=== PATIENT | female | born 1940 | race Caucasian/White ===

== ENCOUNTER → 2017-05-27 | Outpatient (CLI) | payer OTHER ==
[~2017-05-27] MED LIST: LACTULOSE; TRAMADOL HCL50 M1; Z.0.ATENOLOL25 MG; Z.0.LEVOXYL125 MCG; Z.0.PROZAC20 MG; Z.0.SIMVASTATIN20 MG; Z.1.HYDROCHLOROTH12.
== END ==
LOC: RESP 09:37
PROVIDERS: ATTEND Internal Medicine
DX: R05 Cough (principal); K21.9 Gastro-esophageal reflux disease without esophagitis; I10 Essential (primary) hypertension
CPT/HCPCS: 94060; 94727; 94729

== ENCOUNTER 2017-10-23 11:12 | Observation (INO) | payer OTHER ==
[~2017-10-23] VITALS: Ht 162.6 cm; Wt 70.5 kg
--- NOTE | 2017-10-23 12:01 | Diagnostic Imaging Report ---
Examination: Single AP view of the chest. COMPARISON: 06/30/2011. INDICATION: Chest pain. DISCUSSION: Lines/tubes: None. Lungs: Mild patchy density in the right lung base suggestive of subsegmental atelectasis.. There is no evidence of pneumonia or pulmonary edema. Pleura: There is no pleural effusion or pneumothorax. Heart and mediastinum: Cardiomediastinal silhouette is unremarkable. Pulmonary vasculature is normal. Bones and soft tissues: No acute bony abnormalities. Degenerative changes in the thoracic spine. IMPRESSION: 1. Right basilar subsegmental atelectasis. Signed by: Dr. Jason Barrera M.D. on 10/23/2017 11:58 AM
[2017-10-23 12:46] LABS: CLARITY,URINE CLEAR (CLEAR); COLOR,URINE YELLOW (YELLOW); LEUKOCYTE ESTERASE ,URINE NEGATIVE (NEGATIVE); NITRITE,URINE NEGATIVE (NEGATIVE); PROTEIN,URINE DIPSTICK NEGATIVE (NEGATIVE)
[2017-10-23 12:47] LABS: BILIRUBIN,URINE NEGATIVE (NEGATIVE); KETONES,URINE NEGATIVE (NEGATIVE); URINE UROBILINOGEN 0.2 mg/dL (0.2 - 1)
[2017-10-23 12:50] LABS: BACTERIA,URINE FEW /HPF; EPITHELIAL CELLS,URINE FEW /LPF; RBC,URINE 0-5 /HPF (0-5); WBC,URINE (MAN) 0-5 /HPF (0-5)
[2017-10-23 13:00] LABS: BASOPHILS # (AUTO) 0.1 (0.0-0.1); BASOPHILS % 0.6 % (0.0-1.0); EOSINOPHILS # (AUTO) 0.1 (0.0-0.4); EOSINOPHILS % 0.9 % (0.0-6.0); HEMATOCRIT 45.6 % (34.2-44.1); HEMOGLOBIN 15.8 g/dL (12.0-16.0); LYMPHOCYTES # (AUTO) 2.7 (1.0-3.2); LYMPHOCYTES % 19.2 % (18.0-39.1); MEAN CORPUSCULAR HEMOGLOBIN 31.5 pg (28-32); MEAN CORPUSCULAR HGB CONC 34.6 g/dL (31-35); MEAN CORPUSCULAR VOLUME 90.8 fL (81-99); MONOCYTES # (AUTO) 1.1 (0.2-0.8); MONOCYTES % 7.6 % (4.4-11.3); NEUTROPHILS % 70.6 % (38.7-80.0); PLATELET COUNT 223 x10e3/uL (140-360); RED BLOOD COUNT 5.02 x10e6/uL (3.6-5.1); RED CELL DISTRIBUTION WIDTH 12.7 % (11.7-14.4)
[2017-10-23 13:09] LABS: INR 1.05; PROTHROMBIN TIME 12.9 seconds (11.9-14.5)
[2017-10-23 13:10] LABS: PARTIAL THROMBOPLASTIN TIME 25.6 seconds (23.8-35.5)
[2017-10-23 13:23] LABS: ALANINE AMINOTRANSFERASE 16 IU/L (0-55); ALBUMIN 3.9 g/dL (3.5-5.0); ALKALINE PHOSPHATASE 86 IU/L (40-150); ANION GAP 18.4 mmol/L (8-16); BLOOD UREA NITROGEN 20 mg/dL (7-26); BUN/CREATININE RATIO 24 (6-25); CALCIUM 10.4 mg/dL (8.4-10.2); CARBON DIOXIDE 25 mmol/L (22-29); CHLORIDE 99 mmol/L (98-107); CREATINE KINASE 33 IU/L (29-168); CREATININE, SERUM 0.84 mg/dL (0.57-1.11); EST GLOMERULAR FILTRATION RATE > 60 ML/MIN (60-); GLUCOSE 104 mg/dL (74-118); POTASSIUM 3.4 mmol/L (3.5-5.1); SODIUM 139 mmol/L (136-145)
[2017-10-23] MEDS: SODIUM CHLORIDE 0.9% 1000ML 1,000 ML IV SCH ×2 (14:06→21:57)
[2017-10-23] MEDS ORDERED: AZITHROMYCIN 500MG/NS 250 ML 250 ML IV ONE (14:15)
[2017-10-23] MEDS ORDERED: AZITHROMYCIN 500MG/SOD CHL 0.9% 250ML BAG IV SCH (14:15)
[2017-10-23] MEDS ORDERED: METHYLPREDNISOLONE SOD SUCC 125 MG/2ML VIAL IV ONE (14:30)
[2017-10-23] MEDS: CEFTRIAXONE SOD 1 GM VIAL IV SCH (14:41)
[2017-10-23] MEDS ORDERED: AZITHROMYCIN 500MG/NS 250 ML 250 ML IV SCH (15:00)
[2017-10-23 16:00] VITALS: BP 138/60
[2017-10-23 16:43] VITALS: BP 138/60
[2017-10-23] MEDS ORDERED: BACLOFEN10 MG PO (16:53)
[2017-10-23] MEDS ORDERED: NORCO 10-325 T1 EACH (16:53)
[2017-10-23] MEDS ORDERED: ALPRAZOLAM0.5 MG PO (16:53)
[2017-10-23] MEDS ORDERED: SERTRALINE HCL50 MG PO (16:53)
[2017-10-23] MEDS ORDERED: LEVOTHYROXINE150 MCG (16:53)
[2017-10-23] MEDS: ALBUTEROL SULF 0.083% NEB SOLN 3 ML NEB NEB SCH ×2 (19:00→23:00)
[2017-10-23] MEDS: IPRATROPIUM BROMIDE 0.02% 2.5 ML NEB NEB SCH ×2 (19:00→23:00)
[2017-10-23 19:20] VITALS: BP 108/66
[2017-10-23] MEDS: METHYLPREDNISOLONE SOD SUCC 40 MG/ML VIAL IV SCH (21:56)
[2017-10-23 22:27] VITALS: BP 108/66
[2017-10-24] VITALS (7 sets, daily range): BP systolic 104–138; BP diastolic 57–72
[2017-10-24] MEDS: ALBUTEROL SULF 0.083% NEB SOLN 3 ML NEB NEB SCH ×6 (03:08→23:36)
[2017-10-24 05:48] LABS: BASOPHILS % 0.2 % (0.0-1.0); EOSINOPHILS % 0.2 % (0.0-6.0); HEMOGLOBIN 14.5 g/dL (12.0-16.0); LYMPHOCYTES % 9.1 % (18.0-39.1); MEAN CORPUSCULAR HEMOGLOBIN 31.2 pg (28-32); MONOCYTES # (AUTO) 0.1 (0.2-0.8); NEUTROPHILS # (AUTO) 9.3 (2.1-6.9); NEUTROPHILS % 88.1 % (38.7-80.0); PLATELET COUNT 164 x10e3/uL (140-360); RED BLOOD COUNT 4.65 x10e6/uL (3.6-5.1); RED CELL DISTRIBUTION WIDTH 12.7 % (11.7-14.4)
[2017-10-24 05:52] LABS: MEAN CORPUSCULAR VOLUME 94.6 fL (81-99)
[2017-10-24] MEDS: METHYLPREDNISOLONE SOD SUCC 40 MG/ML VIAL IV SCH ×3 (06:04→21:18)
[2017-10-24] MEDS: SODIUM CHLORIDE 0.9% 1000ML 1,000 ML IV SCH (06:06)
[2017-10-24 06:18] LABS: ANION GAP 20.5 mmol/L (8-16); CALCIUM 9.6 mg/dL (8.4-10.2); CREATININE, SERUM 0.94 mg/dL (0.57-1.11); POTASSIUM 3.5 mmol/L (3.5-5.1)
--- NOTE | 2017-10-24 06:55 | Diagnostic Imaging Report ---
EXAM: CHEST SINGLE (PORTABLE), AP 1 view INDICATION: Pneumonia COMPARISON: AP view the chest October 23, 2017 FINDINGS: LINES/TUBES: None LUNGS: No consolidations or edema. PLEURA: No effusions or pneumothorax. HEART AND MEDIASTINUM: Normal size and contour. BONES AND SOFT TISSUES: No acute findings. IMPRESSION: No acute thoracic abnormality. Signed by: Dr. Anjali Young M.D. on 10/24/2017 6:52 AM
[2017-10-24] MEDS: IPRATROPIUM BROMIDE 0.02% 2.5 ML NEB NEB SCH ×4 (07:07→23:36)
[2017-10-24] MEDS ORDERED: HYDROCODONE/APAP 10MG-325MG TAB PO PRN (09:45)
[2017-10-24] MEDS ORDERED: ALPRAZOLAM 0.5 MG TAB PO PRN (09:45)
[2017-10-24] MEDS ORDERED: BENZONATATE 100 MG CAP PO PRN (09:45)
[2017-10-24] MEDS ORDERED: BACLOFEN 10 MG TAB PO PRN (09:45)
[2017-10-24] MEDS: AZITHROMYCIN 250 MG TAB PO SCH (10:30)
--- NOTE | 2017-10-24 10:45 | History and Physical ---
Patient placed on observation. CHIEF COMPLAINT: Asthma exacerbation. HISTORY: A 77-year-old female basically came in with acute asthma exacerbation. The patient was having increasing shortness of breath. At baseline the patient has controlled asthma. She had multiple hospitalizations in the past with acute bronchitis. Chest x-ray showed atelectasis but otherwise no infiltrate. The patient is stable now. She does have some expiratory wheezing but no fever. PAST MEDICAL HISTORY: Asthma, hypertension, recent right shoulder surgery, hypothyroidism, depression, anxiety disorder. Chronic pain with osteoarthritis. Osteopenia/osteoporosis. ALLERGIES: TO PENICILLIN AND NAPROXEN. HOME MEDICATIONS: Xanax, Baclofen, [place], levothyroxine and Zoloft. PHYSICAL EXAMINATION: VITAL SIGNS: Temperature is 98. Blood pressure 138/65. Pulse rate is 88. Respiration 22. GENERAL: The patient is not in acute distress. She is awake. HEENT: Normocephalic, atraumatic. She is anicteric. NECK: Supple grossly. PULMONARY: Diminished breath sounds bilaterally with expiratory wheezes and a few rhonchi, a few coarses. CARDIOVASCULAR: S1 and S2. Regular rate and rhythm. ABDOMEN: Soft and unremarkable. EXTREMITIES: No cyanosis or edema. NEUROLOGIC: No gross focal deficit. LABORATORY: Sodium is 139, potassium 3.5, chloride 100, bicarb 22, BUN 28, creatinine 0.9. Glucose 209. WBC is 10.4, hemoglobin 14.5, hematocrit 44, platelets are 164. CHEST X-RAY: Basilar atelectasis. IMPRESSION: 1. Acute asthma exacerbation. 2. Chronic cough. 3. Abnormal lung exam as mentioned above. PLAN: IV steroids. Nebulizer treatment. Antitussive medication. Resume home medication. Treat allergic rhinitis, may be the cause of the exacerbation of her asthma. Patient on observation. Job#: [id number] EV
[2017-10-24] MEDS: LORATADINE 10 MG TAB PO SCH (11:00)
[2017-10-24] MEDS: FAMOTIDINE 20 MG TAB PO SCH ×2 (11:00→16:26)
[2017-10-24] MEDS: LEVOTHYROXINE SODIUM 100 MCG TAB PO SCH (11:00)
[2017-10-24] MEDS: SENNA-S TABLET PO SCH ×2 (11:00→16:26)
[2017-10-24] MEDS: BENZONATATE 100 MG CAP PO SCH ×3 (11:00→21:18)
[2017-10-24] MEDS: CEFTRIAXONE SOD 1 GM VIAL IV SCH (13:00)
--- NOTE | 2017-10-24 15:47 | Consultation ---
DATE OF CONSULTATION: PULMONARY CONSULTATION REASON FOR CONSULTATION: Shortness of breath. HISTORY OF PRESENT ILLNESS: Ms. Scott is a 77-year-old female well known to me from previous admissions and my office visits. She has history of asthma and reactive airways that started after an episode of pneumonia last year. She has been doing well with a low-dose steroid inhaler, but yesterday she started having increasing cough and wheezing; so, she decided to come to the emergency room. She recently had a shoulder surgery. She denies any complaints of chest pain, nausea, vomiting or diarrhea. REVIEW OF SYSTEMS: GENERAL: Denies any fever or chills. HEAD: Denies any head trauma. ENT: Denies any earache. CVS: Denies any chest pain. RESPIRATORY: Shortness of breath. GI: Denies any nausea or vomiting. REST OF THE REVIEW OF SYSTEMS: Negative except as in history of present illness. PAST MEDICAL HISTORY: Asthma, hypertension, recent shoulder surgery, hypothyroidism, depression, anxiety, chronic pain with osteoarthritis. FAMILY AND SOCIAL HISTORY: She lives with her . She does not smoke, does not drink. PHYSICAL EXAMINATION: VITALS: Temperature 96.7, pulse of 98, blood pressure 138/65, respiratory rate of 18. HEENT: Atraumatic, normocephalic. NECK: Supple. No JVD. CHEST: Clear to auscultation bilaterally. No wheezing. HEART: S1 and S2 audible. ABDOMEN: Soft, nontender, nondistended. Bowel sounds audible. EXTREMITIES: No clubbing, cyanosis or edema. NEUROLOGIC: Awake, alert. No focal neurologic deficit. LABORATORY DATA: White count of 10,000. Hemoglobin 14.5. Platelets 164. CHEMISTRY: Sodium 139, potassium 3.5, chloride 100, BUN 28, creatinine 0.9. CHEST X-RAY: I have reviewed the images, not showing any focal infiltrate. ASSESSMENT AND PLAN: Ms. Scott is a 77-year-old female who presented with asthma exacerbation, previous history of reactive airways and asthma. Chest x-ray is within normal limits. PLAN: 1. Nebulizer treatment has been ordered. 2. IV steroids. 3. Will continue the patient's Singulair. 4. Oxygen as needed. Thank you for this consult. Job#: [id number] EV
[2017-10-24] MEDS ORDERED: MONTELUKAST SODIUM 10 MG TAB PO SCH (21:00)
[2017-10-25 00:15] VITALS: BP 128/59
[2017-10-25 01:00] VITALS: BP 128/59
[2017-10-25] MEDS: ALBUTEROL SULF 0.083% NEB SOLN 3 ML NEB NEB SCH ×2 (03:00→07:15)
[2017-10-25 05:00] VITALS: BP 104/54
[2017-10-25] MEDS: METHYLPREDNISOLONE SOD SUCC 40 MG/ML VIAL IV SCH (05:53)
[2017-10-25] MEDS: LEVOTHYROXINE SODIUM 100 MCG TAB PO SCH (05:53)
[2017-10-25] MEDS: IPRATROPIUM BROMIDE 0.02% 2.5 ML NEB NEB SCH (07:15)
[2017-10-25 07:59] VITALS: BP 114/56
[2017-10-25 08:00] VITALS: BP 114/56
[2017-10-25] MEDS: SENNA-S TABLET PO SCH (08:58)
[2017-10-25] MEDS: FAMOTIDINE 20 MG TAB PO SCH (08:58)
[2017-10-25] MEDS: LORATADINE 10 MG TAB PO SCH (08:58)
[2017-10-25] MEDS: BENZONATATE 100 MG CAP PO SCH (08:58)
[2017-10-25] MEDS ORDERED: SERTRALINE HCL 50 MG TAB PO SCH (09:00)
[2017-10-25] MEDS ORDERED: SINGULAIR10 MG PO (09:51)
[2017-10-25] MEDS ORDERED: CLARITIN10 MG PO (09:52)
[2017-10-25] MEDS ORDERED: TESSALON PERLE100 MG PO (09:54)
[2017-10-25] MEDS ORDERED: AZITHROMYCIN250 MG PO (09:54)
[2017-10-25] MEDS ORDERED: medrol pack (09:55)
[2017-10-25] MEDS: AZITHROMYCIN 250 MG TAB PO SCH (09:57)
--- NOTE | 2017-10-25 15:53 | Discharge Summary ---
FINAL DIAGNOSES: 1. Acute exacerbation of asthma. 2. Shortness of breath, resolved. SUMMARY: A 77-year-old female came in with some increasing shortness of breath and wheezing. Patient had a lot of stress at home. She was crying due to multiple family members sick and ill with multiple planned surgeries in the future. The patient is very anxious. She also had recent right shoulder surgery and, therefore, she is limited to what she can do at home and also having some stress. Discussed with the patient at length. Her asthma exacerbation now resolved. She will go home with Medrol Dosepak, Miguel and Markie and Emeterio Nguyen for cough, azithromycin 250 mg daily for 5 days. Patient is stable. She will follow up next week for any adjustment of her medication. The patient is stable, comfortable and going home today. Job#: [id number]
== END 2017-10-25 10:36 | disposition home or self-care (01) ==
LOC: ER 11:12 → ERHOLD 14:06 → IMCU 16:00
PROVIDERS: ADMIT Internal Medicine; ATTEND Internal Medicine
DX: J44.1 Chronic obstructive pulmonary disease with (acute) exacerbation (principal); J45.41 Moderate persistent asthma with (acute) exacerbation; E03.9 Hypothyroidism, unspecified; F41.9 Anxiety disorder, unspecified; G89.29 Other chronic pain; M19.90 Unspecified osteoarthritis, unspecified site; Z88.0 Allergy status to penicillin; Z88.8 Allergy status to other drugs, medicaments and biological substances; R05 Cough
CPT/HCPCS: 36415 ×2; 71045 ×2; 80048; 80053; 81001; 82550; 82553; 83880; 84484; 85025 ×2; 85610; 85730; 87040; 87070; 87205; 93005; 94640 ×5; 99284; G0378 ×3; J0696 ×2; J2920 ×3; J2930; J7030; J0456

== ENCOUNTER 2018-06-05 12:15 | Emergency (ER) | payer MEDICARE, OTHER ==
[~2018-06-05] VITALS: Ht 162.6 cm; Wt 70.3 kg
[~2018-06-05 12:15] MED LIST changes: +ALPRAZOLAM0.5 MG PO; +AZITHROMYCIN250 MG PO; +BACLOFEN10 MG PO; +CLARITIN10 MG PO; +LEVOTHYROXINE150 MCG; +NORCO 10-325 T1 EACH; +SERTRALINE HCL50 MG PO; +SINGULAIR10 MG PO; +TESSALON PERLE100 MG PO; +medrol pack
[2018-06-05] MEDS ORDERED: ONDANSETRON HCL 4 MG ORAL DISINTEGRATING TAB PO ONE (12:30)
[2018-06-05 13:25] LABS: BASOPHILS # (AUTO) 0.1 (0.0-0.1); BASOPHILS % 1.1 % (0.0-1.0); EOSINOPHILS # (AUTO) 0.3 (0.0-0.4); EOSINOPHILS % 2.9 % (0.0-6.0); HEMATOCRIT 44.9 % (34.2-44.1); HEMOGLOBIN 15.6 g/dL (12.0-16.0); LYMPHOCYTES # (AUTO) 2.4 (1.0-3.2); LYMPHOCYTES % 26.7 % (18.0-39.1); MEAN CORPUSCULAR HGB CONC 34.7 g/dL (31-35); MONOCYTES # (AUTO) 0.7 (0.2-0.8); MONOCYTES % 8.2 % (4.4-11.3); NEUTROPHILS # (AUTO) 5.3 (2.1-6.9); NEUTROPHILS % 59.1 % (38.7-80.0); PLATELET COUNT 268 x10e3/uL (140-360); RED BLOOD COUNT 4.88 x10e6/uL (3.6-5.1)
--- NOTE | 2018-06-05 13:40 | NUR ---
TO CT BY STRETCHER WITH WORLD TRAVEL COUNSELOR; HISTORY ENDORSED.
[2018-06-05 13:47] LABS: INR 0.85; PROTHROMBIN TIME 12.4 seconds (11.9-14.5)
[2018-06-05 13:48] LABS: PARTIAL THROMBOPLASTIN TIME 34.9 seconds (23.8-35.5)
[2018-06-05 13:57] LABS: ALANINE AMINOTRANSFERASE 13 IU/L (0-55); ALBUMIN 3.7 g/dL (3.5-5.0); ALKALINE PHOSPHATASE 80 IU/L (40-150); BLOOD UREA NITROGEN 11 mg/dL (7-26); BUN/CREATININE RATIO 13 (6-25); CALCIUM 9.7 mg/dL (8.4-10.2); CARBON DIOXIDE 23 mmol/L (22-29); CHLORIDE 101 mmol/L (98-107); CREATINE KINASE 40 IU/L (29-168); CREATININE, SERUM 0.88 mg/dL (0.57-1.11); EST GLOMERULAR FILTRATION RATE > 60 ML/MIN (60-); GLUCOSE 191 mg/dL (74-118); LIPASE 12 U/L (8-78); MAGNESIUM 1.9 MG/DL (1.3-2.1); SODIUM 141 mmol/L (136-145)
--- NOTE | 2018-06-05 14:00 | NUR ---
BACK FROM CT VIA STRETCHER; ON MONITOR; HUSB WITH PT
--- NOTE | 2018-06-05 14:04 | Diagnostic Imaging Report ---
EXAMINATION: CHEST SINGLE (PORTABLE) INDICATION: Fall. COMPARISON: Chest radiograph 10/24/2017. FINDINGS: TUBES and LINES: None. LUNGS: Lungs are well inflated. Lungs are clear. There is no evidence of pneumonia or pulmonary edema. PLEURA: No pleural effusion or pneumothorax. Slight nonspecific elevation of the right hemidiaphragm. HEART AND MEDIASTINUM: The cardiomediastinal silhouette is unremarkable. BONES AND SOFT TISSUES: No acute osseous lesion. Soft tissues are unremarkable. UPPER ABDOMEN: No free air under the diaphragm. IMPRESSION: No acute radiographic abnormality. Signed by: Dr. Talat Adan MD on 06/05/2018 2:01 PM
--- NOTE | 2018-06-05 14:48 | Diagnostic Imaging Report ---
Examination: CT head without contrast Clinical Indication: Fall; head injury. Technique: Transaxial noncontrast images from the skull base through the vertex were obtained. Sagittal and coronal reformatted images were done. Dose modulation, iterative reconstruction, and/or weight based adjustment of the mA/kV was utilized to reduce the radiation dose to as low as reasonably achievable. Comparison: None. Findings: Scalp: No abnormalities. Bones: Intact. No fractures. No blastic or lytic lesions. Brain sulci: Appropriate for patient's age. Ventricles: Normal in size and configuration. No hydrocephalus. . Extra-axial space: No abnormalities. Parenchyma: There are patchy areas of low-attenuation within subcortical and periventricular white matter, nonspecific, but could represent microvascular ischemic disease. No masses, hemorrhage, or acute or chronic cortical based vascular insults. Suprasellar region: No abnormalities. Craniocervical junction: The foramen magnum is patent. No Chiari one malformation. Impression: 1. No acute intracranial finding. 2. Mild chronic microvascular ischemic change. Signed by: Dr. Agnieszka Sheehan M.D. on 06/05/2018 2:45 PM
--- NOTE | 2018-06-05 14:54 | Diagnostic Imaging Report ---
Examination: CT CERVICAL SPINE WITHOUT CONTRAST HISTORY:Neck injury after fall. COMPARISON:None. TECHNIQUE: Multidetector helical axial images were obtained without contrast from the foramen magnum to T1. Coronal and sagittal reformatted images were done. Bone and soft tissue windows were evaluated. Dose modulation, iterative reconstruction, and/or weight based adjustment of the mA/kV was utilized to reduce the radiation dose to as low as reasonably achievable. FINDINGS: Alignment:Normal alignment and lordosis. Vertebrae: Normal height and density. No acute fracture, infection or neoplasm. Caliber of spinal canal: Developmentally normal. Posterior fossa and craniocervical junction: Foramen magnum patent. No Chiari 1 malformation. Soft tissues: Surgically absent thyroid gland. Degenerative changes: Severe degenerative narrowing at C1-C2. Severe left facet arthropathy from C2 through C6. Diffuse disc osteophyte complex and bilateral uncovertebral arthropathy at C5-C6 results in moderate bilateral neural foraminal narrowing. No canal stenosis. Mild bilateral uncovertebral arthropathy at C6-C7 without foraminal or canal stenosis. Visualized lung apices: No abnormalities. IMPRESSION: No acute abnormalities. Signed by: Dr. Agnieszka Sheehan M.D. on 06/05/2018 2:50 PM
[2018-06-05] MEDS ORDERED: POTASSIUM CHLORIDE 20 MEQ TAB CR PO ONE (15:30)
[2018-06-05] MEDS ORDERED: SODIUM CHLORIDE 0.9% 500ML 500 ML IV ONE (15:45)
[2018-06-05] MEDS ORDERED: ONDANSETRON HCL INJ 2MG/ML 2ML 2 MG/ML VIAL IV ONE (16:00)
--- NOTE | 2018-06-05 19:25 | NUR ---
1755 IV WAS DC PRIOR TO DC WITH TIP INTACT; PRESSURE AND DRY DRSG APPLIED
[2018-06-05 19:31] VITALS: BP 117/78
== END 2018-06-05 17:35 | disposition home or self-care (01) ==
LOC: ER 12:15
DX: S00.83XA Contusion of other part of head, initial encounter (principal); R51 Headache; R11.2 Nausea with vomiting, unspecified; E87.6 Hypokalemia; K52.9 Noninfective gastroenteritis and colitis, unspecified; W01.0XXA Fall on same level from slipping, tripping and stumbling without subsequent striking against object, initial encounter; Y92.008 Other place in unspecified non-institutional (private) residence as the place of occurrence of the external cause; I10 Essential (primary) hypertension; E78.5 Hyperlipidemia, unspecified; E07.9 Disorder of thyroid, unspecified; F41.9 Anxiety disorder, unspecified
CPT/HCPCS: 36415; 70450; 71045; 72125; 80053; 82550; 82553; 83690; 83735; 83880; 84484; 85025; 85610; 85730; 93005; 99284; J2405; J7040; Q0162

== ENCOUNTER 2020-11-06 16:07 | Emergency (ER) | payer MEDICARE ==
[~2020-11-06] VITALS: Ht 162.6 cm; Wt 70.3 kg
[2020-11-06] MEDS ORDERED: ONDANSETRON HCL INJ 2MG/ML 2ML 2 MG/ML VIAL IV STA (16:18)
[2020-11-06] MEDS ORDERED: MORPHINE SULFATE INJ 4 MG/ML INJ 1ML IV STA (16:18)
[2020-11-06 16:46] LABS: BASOPHILS # (AUTO) 0.1 (0.0-0.1); BASOPHILS % 0.9 % (0.0-1.0); EOSINOPHILS # (AUTO) 0.4 (0.0-0.4); EOSINOPHILS % 4.2 % (0.0-6.0); HEMATOCRIT 46.5 % (34.2-44.1); HEMOGLOBIN 15.5 g/dL (12.0-16.0); LYMPHOCYTES # (AUTO) 3.2 (1.0-3.2); LYMPHOCYTES % 32.6 % (18.0-39.1); MEAN CORPUSCULAR HEMOGLOBIN 31.1 pg (28-32); MEAN CORPUSCULAR HGB CONC 33.3 g/dL (31-35); MEAN CORPUSCULAR VOLUME 93.2 fL (81-99); MONOCYTES # (AUTO) 0.7 (0.2-0.8); MONOCYTES % 7.6 % (4.4-11.3); NEUTROPHILS # (AUTO) 5.2 (2.1-6.9); NEUTROPHILS % 54.3 % (38.7-80.0); PLATELET COUNT 281 x10e3/uL (140-360); RED BLOOD COUNT 4.99 x10e6/uL (3.6-5.1); RED CELL DISTRIBUTION WIDTH 13.2 % (11.7-14.4)
[2020-11-06 17:05] LABS: ALBUMIN 3.9 g/dL (3.5-5.0); ALBUMIN/GLOBULIN RATIO 1.1 (0.8-2.0); ANION GAP 16.7 mmol/L (8-16); CALCIUM 9.4 mg/dL (8.4-10.2); CREATININE, SERUM 0.78 mg/dL (0.57-1.11); POTASSIUM 3.7 mmol/L (3.5-5.1)
[2020-11-06 17:11] LABS: CREATINE KINASE MB 1.6 ng/mL (0-5.0)
[2020-11-06] MEDS ORDERED: SODIUM CHLORIDE 0.9% 50ML 50 ML ONE (18:03)
[2020-11-06] MEDS ORDERED: IOPAMIDOL 370 MG/ML 200 ML INFUS..BTL INJ ONE (18:03)
[2020-11-06 20:28] VITALS: BP 136/88
== END 2020-11-06 20:31 | disposition home or self-care (01) ==
LOC: ER 16:37
DX: R07.89 Other chest pain (principal); R94.31 Abnormal electrocardiogram [ECG] [EKG]; I10 Essential (primary) hypertension; F41.9 Anxiety disorder, unspecified; E78.5 Hyperlipidemia, unspecified; E03.9 Hypothyroidism, unspecified
CPT/HCPCS: 36415; 71045; 71260; 80053; 82550; 82553; 83880; 84484; 85025; 85379; 93005; 99284; Q9967

== ENCOUNTER 2022-03-16 10:57 | Inpatient (IN) | payer MEDICARE ==
[~2022-03-16] VITALS: Ht 162.6 cm; Wt 70.3 kg
[2022-03-16] MEDS ORDERED: ONDANSETRON HCL INJ 2MG/ML 2ML 2 MG/ML VIAL IV STA (11:02)
[2022-03-16] MEDS ORDERED: Morphine 4mg INJECTION 4 MG/ML INJ IV ONE (11:15)
[2022-03-16] MEDS ORDERED: ASPIRIN 81 MG CHEW TAB PO ONE ×2 (11:15→14:15)
[2022-03-16] MEDS ORDERED: SODIUM CHLORIDE FLUSH 10 ML SYR IV PRN (11:15)
[2022-03-16 11:18] LABS: BASOPHILS # (AUTO) 0.1 (0.0-0.1); EOSINOPHILS # (AUTO) 0.6 (0.0-0.4); EOSINOPHILS % 4.1 % (0.0-6.0); HEMATOCRIT 50.1 % (34.2-44.1); HEMOGLOBIN 15.7 g/dL (12.0-16.0); LYMPHOCYTES # (AUTO) 5.9 (1.0-3.2); LYMPHOCYTES % 40.7 % (18.0-39.1); MEAN CORPUSCULAR HEMOGLOBIN 30.4 pg (28-32); MEAN CORPUSCULAR HGB CONC 31.3 g/dL (31-35); MEAN CORPUSCULAR VOLUME 97.1 fL (81-99); MONOCYTES # (AUTO) 1.2 (0.2-0.8); MONOCYTES % 8.5 % (4.4-11.3); NEUTROPHILS # (AUTO) 6.5 (2.1-6.9); NEUTROPHILS % 45.2 % (38.7-80.0); PLATELET COUNT 271 x10e3/uL (140-360); RED BLOOD COUNT 5.16 x10e6/uL (3.6-5.1); RED CELL DISTRIBUTION WIDTH 13.1 % (11.7-14.4)
[2022-03-16 12:29] LABS: EOSINOPHILS % (MANUAL) 5 % (0-7); LYMPHOCYTES % (MANUAL) 52 % (19-48); MONOCYTES % (MANUAL) 9 % (3.4-9.0); NEUTROPHILS % (MANUAL) 34 % (40-74); PLATELET ESTIMATE ADEQUATE; PLATELET MORPHOLOGY COMMENT NORMAL; RBC MORPHOLOGY COMMENT NORMAL
[2022-03-16 12:44] LABS: ALBUMIN 4.1 g/dL (3.5-5.0); ALBUMIN/GLOBULIN RATIO 1.2 (0.8-2.0); ANION GAP 17.7 mmol/L (8-16); CREATININE, SERUM 0.77 mg/dL (0.57-1.11); POTASSIUM 3.7 mmol/L (3.5-5.1)
[2022-03-16] MEDS ORDERED: SODIUM CHLORIDE FLUSH 10 ML SYR INJ PRN (14:15)
[2022-03-16 14:45] LABS: CREATINE KINASE MB 3.3 ng/mL (0-5.0)
[2022-03-16 15:30] VITALS: BP 121/62
[2022-03-16] MEDS ORDERED: METOPROLOL TARTRATE 25 MG TAB PO ONE (16:00)
[2022-03-16 16:03] VITALS: BP 121/62
[2022-03-16] MEDS: TICAGRELOR 90 MG TABLET PO SCH (17:00)
[2022-03-16 20:00] VITALS: BP 105/60
[2022-03-16 21:10] VITALS: BP 105/60
[2022-03-16 21:15] LABS: CREATINE KINASE MB 30.9 ng/mL (0-5.0)
[2022-03-16 22:05] VITALS: BP 110/68
[2022-03-16] MEDS: ONDANSETRON HCL INJ 2MG/ML 2ML 2 MG/ML VIAL IV PRN (22:13)
[2022-03-16] MEDS: Morphine 4mg INJECTION 4 MG/ML INJ IV PRN (22:13)
[2022-03-17] VITALS (8 sets, daily range): BP systolic 92–151; BP diastolic 48–86
[2022-03-17 02:05] LABS: CLARITY,URINE CLEAR (CLEAR); COLOR,URINE YELLOW (YELLOW); KETONES,URINE TRACE (NEGATIVE); LEUKOCYTE ESTERASE ,URINE NEGATIVE (NEGATIVE); NITRITE,URINE NEGATIVE (NEGATIVE); PROTEIN,URINE DIPSTICK NEGATIVE (NEGATIVE); URINE UROBILINOGEN 1 mg/dL (0.2 - 1)
[2022-03-17 02:07] LABS: BACTERIA,URINE RARE /HPF; EPITHELIAL CELLS,URINE MANY /LPF; RBC,URINE 0-5 /HPF (0-5); WBC,URINE (MAN) 0-5 /HPF (0-5)
[2022-03-17 04:30] LABS: CREATINE KINASE MB 17.6 ng/mL (0-5.0)
[2022-03-17 05:51] LABS: BASOPHILS # (AUTO) 0.1 (0.0-0.1); BASOPHILS % 1.2 % (0.0-1.0); EOSINOPHILS # (AUTO) 0.5 (0.0-0.4); EOSINOPHILS % 4.4 % (0.0-6.0); HEMATOCRIT 39.5 % (34.2-44.1); HEMOGLOBIN 13.2 g/dL (12.0-16.0); LYMPHOCYTES % 27.2 % (18.0-39.1); MEAN CORPUSCULAR HEMOGLOBIN 31.2 pg (28-32); MEAN CORPUSCULAR HGB CONC 33.4 g/dL (31-35); MEAN CORPUSCULAR VOLUME 93.4 fL (81-99); MONOCYTES # (AUTO) 1.3 (0.2-0.8); MONOCYTES % 11.4 % (4.4-11.3); NEUTROPHILS # (AUTO) 6.1 (2.1-6.9); NEUTROPHILS % 55.3 % (38.7-80.0); PLATELET COUNT 195 x10e3/uL (140-360); RED BLOOD COUNT 4.23 x10e6/uL (3.6-5.1); RED CELL DISTRIBUTION WIDTH 13.3 % (11.7-14.4)
[2022-03-17 06:22] LABS: ALBUMIN 3.4 g/dL (3.5-5.0); ALBUMIN/GLOBULIN RATIO 1.3 (0.8-2.0); ANION GAP 11.1 mmol/L (8-16); CALCIUM 8.7 mg/dL (8.4-10.2); CREATININE, SERUM 0.79 mg/dL (0.57-1.11); POTASSIUM 4.1 mmol/L (3.5-5.1)
[2022-03-17] MEDS: TICAGRELOR 90 MG TABLET PO SCH ×2 (09:00→16:20)
[2022-03-17] MEDS ORDERED: REGADENOSON 0.4 MG/5 ML SYR IV ONE (09:54)
[2022-03-17] MEDS: ASPIRIN 325 MG TAB EC PO SCH (16:20)
[2022-03-17] MEDS: ONDANSETRON HCL INJ 2MG/ML 2ML 2 MG/ML VIAL IV PRN (16:50)
[2022-03-17] MEDS: Morphine 4mg INJECTION 4 MG/ML INJ IV PRN (16:50)
[2022-03-17] MEDS ORDERED: ALPRAZOLAM 0.5 MG TAB PO PRN (21:15)
[2022-03-17] MEDS ORDERED: ACETAMINOPHEN 325 MG TAB PO PRN (21:15)
[2022-03-17] MEDS ORDERED: BACLOFEN 10 MG TAB PO PRN (21:15)
[2022-03-17] MEDS ORDERED: HYDROCODONE/APAP 10MG-325MG TAB PO PRN (21:15)
[2022-03-17] MEDS ORDERED: BENZONATATE 100 MG CAP PO PRN (21:15)
[2022-03-17] MEDS: MONTELUKAST SODIUM 10 MG TAB PO SCH (22:07)
[2022-03-17] MEDS: SODIUM CHLORIDE 0.9% 1000ML 1,000 ML IV SCH (22:08)
[2022-03-18] VITALS (13 sets, daily range): BP systolic 98–133; BP diastolic 42–80
[2022-03-18 06:19] LABS: BASOPHILS # (AUTO) 0.1 (0.0-0.1); BASOPHILS % 0.8 % (0.0-1.0); EOSINOPHILS # (AUTO) 0.6 (0.0-0.4); EOSINOPHILS % 5.5 % (0.0-6.0); HEMATOCRIT 42.8 % (34.2-44.1); LYMPHOCYTES # (AUTO) 2.9 (1.0-3.2); LYMPHOCYTES % 27.3 % (18.0-39.1); MEAN CORPUSCULAR HEMOGLOBIN 30.7 pg (28-32); MEAN CORPUSCULAR HGB CONC 30.4 g/dL (31-35); MEAN CORPUSCULAR VOLUME 100.9 fL (81-99); MONOCYTES # (AUTO) 1.2 (0.2-0.8); MONOCYTES % 11.1 % (4.4-11.3); NEUTROPHILS # (AUTO) 5.9 (2.1-6.9); NEUTROPHILS % 54.9 % (38.7-80.0); PLATELET COUNT 187 x10e3/uL (140-360); RED BLOOD COUNT 4.24 x10e6/uL (3.6-5.1); RED CELL DISTRIBUTION WIDTH 13.2 % (11.7-14.4)
[2022-03-18 06:43] LABS: CALCIUM 8.6 mg/dL (8.4-10.2); CREATININE, SERUM 0.72 mg/dL (0.57-1.11)
[2022-03-18] MEDS ORDERED: HEPARIN SOD (PORCINE) 1000 UNIT/ML 30ML ONE (07:03)
[2022-03-18] MEDS ORDERED: SODIUM CHLORIDE 0.9% 1000ML 1,000 ML ONE (07:03)
[2022-03-18] MEDS ORDERED: HEPARIN SOD/SOD CHLORIDE 2,000 ML ONE (07:03)
[2022-03-18] MEDS ORDERED: IOPAMIDOL 370 MG/ML 100 ML INFUS..BTL INJ ONE ×2 (07:03→08:09)
[2022-03-18] MEDS ORDERED: NITROGLYCERIN/D5W 200 MCG/ML 250 ML ONE (07:04)
[2022-03-18] MEDS ORDERED: LIDOCAINE HCL 1% LOCAL INJ 20 ML VIAL ONE (07:04)
[2022-03-18] MEDS: SODIUM CHLORIDE 0.9% 1000ML 1,000 ML IV SCH ×2 (07:15→16:33)
[2022-03-18] MEDS ORDERED: FENTANYL CITRATE/PF 100MCG/2 ML INJ ONE (07:30)
[2022-03-18] MEDS ORDERED: MIDAZOLAM HCL 2 MG/2 ML VIAL ONE ×2 (07:30→08:21)
[2022-03-18] MEDS ORDERED: TICAGRELOR 90 MG TABLET ONE (08:28)
[2022-03-18] MEDS ORDERED: ASPIRIN 81 MG CHEW TAB ONE (08:30)
[2022-03-18] MEDS: ASPIRIN 325 MG TAB EC PO SCH (08:33)
[2022-03-18] MEDS: TICAGRELOR 90 MG TABLET PO SCH ×2 (08:33→16:32)
[2022-03-18] MEDS: Morphine 4mg INJECTION 4 MG/ML INJ IV PRN ×2 (09:46→21:11)
[2022-03-18] MEDS: LORATADINE 10 MG TAB PO SCH (12:18)
[2022-03-18] MEDS: SERTRALINE HCL 50 MG TAB PO SCH (12:18)
[2022-03-18] MEDS ORDERED: ATORVASTATIN 40 MG TAB PO SCH (21:00)
[2022-03-18] MEDS: MONTELUKAST SODIUM 10 MG TAB PO SCH (21:02)
[2022-03-19] VITALS: BP 106/50
[2022-03-19] MEDS: SODIUM CHLORIDE 0.9% 1000ML 1,000 ML IV SCH (03:23)
[2022-03-19 04:00] VITALS: BP 90/52
[2022-03-19] MEDS: LORATADINE 10 MG TAB PO SCH (08:46)
[2022-03-19] MEDS: ASPIRIN 325 MG TAB EC PO SCH (08:46)
[2022-03-19] MEDS: TICAGRELOR 90 MG TABLET PO SCH (08:46)
[2022-03-19] MEDS: SERTRALINE HCL 50 MG TAB PO SCH (08:46)
[2022-03-19 09:15] VITALS: BP 103/46
[2022-03-19 09:20] VITALS: BP 103/46
== END 2022-03-19 10:43 | disposition home or self-care (01) | DRG 247 ==
LOC: ER 11:04 → ERHOLD 14:08 → MED/SURG3 15:14 → OBSVTOIN 03-18 11:57
PROVIDERS: ADMIT Internal Medicine; ATTEND Internal Medicine
PROC: 027034Z Dilation of Coronary Artery, One Artery with Drug-eluting Intraluminal Device, Percutaneous Approach (ICD-10-PCS; principal; 2022-03-18)
PROC: 4A023N7 Measurement of Cardiac Sampling and Pressure, Left Heart, Percutaneous Approach (ICD-10-PCS; 2022-03-18)
PROC: B2111ZZ Fluoroscopy of Multiple Coronary Arteries using Low Osmolar Contrast (ICD-10-PCS; 2022-03-18)
DX: I25.10 Atherosclerotic heart disease of native coronary artery without angina pectoris (principal); I24.9 Acute ischemic heart disease, unspecified; E78.5 Hyperlipidemia, unspecified; E03.9 Hypothyroidism, unspecified; J45.909 Unspecified asthma, uncomplicated; Z20.822 Contact with and (suspected) exposure to COVID-19; Z95.5 Presence of coronary angioplasty implant and graft
CPT/HCPCS: 0223U; 36415; 71045; 78452; 80048; 80053; 81001; 82550; 82553; 83880; 84484; 85025; 92920; 92928; 93005; 93017; 93458; 94760; 99152; 99153; 99284; A9502; C1725; C1760; C1769; C1874; C1887; G0378; J1644; J2001; J2250; J2270; J2405; J3010; J7030; Q9967

== ENCOUNTER 2023-03-08 15:11 | Inpatient (IN) | payer MEDICARE ==
[~2023-03-08] VITALS: Ht 162.6 cm; Wt 45.8 kg
[2023-03-08] MEDS ORDERED: ONDANSETRON HCL INJ 2MG/ML 2ML 2 MG/ML VIAL IV PRN (16:15)
[2023-03-08] MEDS ORDERED: Morphine 2mg Syringe 2 MG/ML SYR IV PRN (16:15)
[2023-03-08 16:17] VITALS: PULSE 80; RESP 16; O2SAT 97
[2023-03-08 17:02] LABS: BASOPHILS # (AUTO) 0.1 (0.0-0.1); BASOPHILS % 1.2 % (0.0-1.0); EOSINOPHILS # (AUTO) 0.3 (0.0-0.4); HEMATOCRIT 43.8 % (34.2-44.1); HEMOGLOBIN 14.8 g/dL (12.0-16.0); LYMPHOCYTES # (AUTO) 2.7 (1.0-3.2); LYMPHOCYTES % 29.1 % (18.0-39.1); MEAN CORPUSCULAR HEMOGLOBIN 30.5 pg (28-32); MEAN CORPUSCULAR HGB CONC 33.8 g/dL (31-35); MEAN CORPUSCULAR VOLUME 90.3 fL (81-99); MONOCYTES % 10.5 % (4.4-11.3); NEUTROPHILS # (AUTO) 5.2 (2.1-6.9); NEUTROPHILS % 55.2 % (38.7-80.0); PLATELET COUNT 296 x10e3/uL (140-360); RED BLOOD COUNT 4.85 x10e6/uL (3.6-5.1); RED CELL DISTRIBUTION WIDTH 12.6 % (11.7-14.4); WHITE BLOOD COUNT 9.36 x10e3/uL (4.8-10.8)
[2023-03-08 17:26] LABS: ALBUMIN 3.7 g/dL (3.5-5.0); ALBUMIN/GLOBULIN RATIO 0.8 (0.8-2.0); ANION GAP 24.3 mmol/L (8-16); BILIRUBIN,TOTAL 0.5 mg/dL (0.2-1.2); CALCIUM 9.6 mg/dL (8.4-10.2); CREATININE, SERUM 1.22 mg/dL (0.57-1.11); POTASSIUM 4.3 mmol/L (3.5-5.1); TOTAL PROTEIN 8.1 g/dL (6.5-8.1); TROPONIN I 0.017 ng/mL (0-0.300)
[2023-03-08] MEDS: SODIUM CHLORIDE 0.9% 1000ML 1,000 ML IV SCH (17:35)
[2023-03-08] MEDS ORDERED: IOPAMIDOL 370 MG/ML 100 ML INFUS..BTL INJ ONE (17:38)
[2023-03-08 18:31] VITALS: PULSE 75; RESP 16; O2SAT 99
[2023-03-08 20:00] VITALS: BP 119/61; PULSE 69; RESP 17; TEMP 97.8; O2SAT 99
[2023-03-08 20:30] VITALS: BP 119/61; PULSE 69; RESP 17; TEMP 97.8; O2SAT 99
[2023-03-08] MEDS ORDERED: LOSARTAN POTASS25 MG PO (21:36)
[2023-03-08] MEDS ORDERED: LEVOTHYROXINE125 MCG PO (21:36)
[2023-03-08] MEDS ORDERED: MIRTAZAPINE15 MG PO (21:36)
[2023-03-08] MEDS ORDERED: ASPIRIN81 MG PO (21:36)
[2023-03-08] MEDS ORDERED: GABAPENTIN100 MG PO (21:36)
[2023-03-08] MEDS ORDERED: ATORVASTATIN CA80 MG PO (21:36)
[2023-03-08] MEDS ORDERED: DULOXETINE HCL30 MG PO (21:36)
[2023-03-08] MEDS ORDERED: TRIAMTERENE-HCTZ1 EA PO (21:36)
[2023-03-08] MEDS ORDERED: ULTRAM 50MG50 MG PO (21:36)
[2023-03-08] MEDS ORDERED: INFLUENZA VIRUS VAC SPLIT INJ 0.5 ML SYR IM SCH (21:54)
[2023-03-08 21:55] VITALS: BP 119/61; PULSE 69; RESP 17; TEMP 97.8; O2SAT 99
[2023-03-09] VITALS (8 sets, daily range): BP systolic 122–146; BP diastolic 55–78; PULSE 70–92; RESP 16–18; TEMP 97.5–98; O2SAT 95–99
[2023-03-09 02:34] LABS: TROPONIN I 0.017 ng/mL (0-0.300)
[2023-03-09] MEDS: SODIUM CHLORIDE 0.9% 1000ML 1,000 ML IV SCH ×3 (06:16→16:41)
[2023-03-09 06:46] LABS: BASOPHILS # (AUTO) 0.1 (0.0-0.1); BASOPHILS % 0.9 % (0.0-1.0); EOSINOPHILS # (AUTO) 0.3 (0.0-0.4); EOSINOPHILS % 3.3 % (0.0-6.0); HEMOGLOBIN 11.4 g/dL (12.0-16.0); LYMPHOCYTES % 23.4 % (18.0-39.1); MEAN CORPUSCULAR HEMOGLOBIN 30.5 pg (28-32); MEAN CORPUSCULAR HGB CONC 33.5 g/dL (31-35); MEAN CORPUSCULAR VOLUME 90.9 fL (81-99); MONOCYTES # (AUTO) 0.9 (0.2-0.8); MONOCYTES % 10.7 % (4.4-11.3); NEUTROPHILS # (AUTO) 5.2 (2.1-6.9); PLATELET COUNT 234 x10e3/uL (140-360); RED BLOOD COUNT 3.74 x10e6/uL (3.6-5.1); RED CELL DISTRIBUTION WIDTH 12.7 % (11.7-14.4)
[2023-03-09 07:03] LABS: ANION GAP 18.7 mmol/L (8-16); BILIRUBIN,TOTAL 0.5 mg/dL (0.2-1.2); CALCIUM 8.5 mg/dL (8.4-10.2); CREATININE, SERUM 1.09 mg/dL (0.57-1.11); POTASSIUM 3.7 mmol/L (3.5-5.1); TOTAL PROTEIN 6.1 g/dL (6.5-8.1)
[2023-03-09 07:23] LABS: CLARITY,URINE CLEAR (CLEAR); COLOR,URINE YELLOW (YELLOW); PH,URINE 5.5 (5 - 7)
[2023-03-09 07:24] LABS: BILIRUBIN,URINE SMALL (NEGATIVE); GLUCOSE, URINE NEGATIVE (NEGATIVE); KETONES,URINE 1+ (NEGATIVE); LEUKOCYTE ESTERASE ,URINE NEGATIVE (NEGATIVE); NITRITE,URINE NEGATIVE (NEGATIVE); PROTEIN,URINE DIPSTICK NEGATIVE (NEGATIVE); URINE UROBILINOGEN 0.2 mg/dL (0.2 - 1)
[2023-03-09 07:44] LABS: BACTERIA,URINE MODERATE /HPF; EPITHELIAL CELLS,URINE FEW /LPF; RBC,URINE 0-5 /HPF (0-5); WBC,URINE (MAN) 0-5 /HPF (0-5)
[2023-03-09 09:32] LABS: TROPONIN I 0.007 ng/mL (0-0.300)
[2023-03-09] MEDS ORDERED: TRAMADOL HCL 50 MG TAB PO PRN (10:00)
[2023-03-09] MEDS ORDERED: BACLOFEN 10 MG TAB PO PRN (10:00)
[2023-03-09] MEDS: GABAPENTIN 100 MG CAP PO SCH ×2 (15:58→21:33)
[2023-03-09] MEDS: ATORVASTATIN 40 MG TAB PO SCH (21:33)
[2023-03-09] MEDS: MONTELUKAST SODIUM 10 MG TAB PO SCH (21:33)
[2023-03-09] MEDS: MIRTAZAPINE 15 MG TAB PO SCH (21:33)
[2023-03-10] VITALS (8 sets, daily range): BP systolic 124–138; BP diastolic 59–70; PULSE 71–88; RESP 17–20; TEMP 97.4–98.5; O2SAT 96–100
[2023-03-10] MEDS: SODIUM CHLORIDE 0.9% 1000ML 1,000 ML IV SCH ×3 (04:24→20:46)
[2023-03-10] MEDS ORDERED: LEVOTHYROXINE SODIUM 125 MCG TAB PO SCH (06:00)
[2023-03-10 07:05] LABS: HIV 1&2 AB SCREEN NON-REACTIVE (NONREACTIVE)
[2023-03-10] MEDS: BALSAM PERU/CASTOR OIL 60 GM OINT...G. TP SCH (09:00)
[2023-03-10] MEDS: DULOXETINE HCL 30 MG DELAYED RELEASE PO SCH (09:26)
[2023-03-10] MEDS: LOSARTAN POTASSIUM 25 MG TAB PO SCH (09:27)
[2023-03-10] MEDS: GABAPENTIN 100 MG CAP PO SCH ×3 (09:27→20:44)
[2023-03-10] MEDS: SERTRALINE HCL 50 MG TAB PO SCH (09:27)
[2023-03-10] MEDS ORDERED: ONDANSETRON HCL 4 MG ORAL DISINTEGRATING TAB PO PRN (10:45)
[2023-03-10] MEDS: ALPRAZOLAM 0.5 MG TAB PO PRN ×2 (15:27→22:32)
[2023-03-10] MEDS: PANTOPRAZOLE SOD 40 MG TABEC PO SCH (18:49)
[2023-03-10] MEDS: MIRTAZAPINE 15 MG TAB PO SCH (20:45)
[2023-03-10] MEDS: ATORVASTATIN 40 MG TAB PO SCH (20:45)
[2023-03-10] MEDS: MONTELUKAST SODIUM 10 MG TAB PO SCH (20:45)
[2023-03-11] VITALS (8 sets, daily range): BP systolic 109–139; BP diastolic 51–99; PULSE 69–88; RESP 16–20; TEMP 97.7–98.1; O2SAT 95–100
[2023-03-11] MEDS: SODIUM CHLORIDE 0.9% 1000ML 1,000 ML IV SCH ×2 (04:15→18:29)
[2023-03-11] MEDS: SERTRALINE HCL 50 MG TAB PO SCH (09:28)
[2023-03-11] MEDS: DULOXETINE HCL 30 MG DELAYED RELEASE PO SCH (09:28)
[2023-03-11] MEDS: LOSARTAN POTASSIUM 25 MG TAB PO SCH (09:29)
[2023-03-11] MEDS: BALSAM PERU/CASTOR OIL 60 GM OINT...G. TP SCH (09:29)
[2023-03-11] MEDS: PANTOPRAZOLE SOD 40 MG TABEC PO SCH (09:29)
[2023-03-11] MEDS: GABAPENTIN 100 MG CAP PO SCH ×3 (09:29→21:33)
[2023-03-11 11:30] LABS: C-REACTIVE PROTEIN 8 mg/L (0-10)
[2023-03-11 11:32] LABS: HEPATITIS B SURFACE AG (P) Negative
[2023-03-11 11:33] LABS: HEPATITIS C ANTIBODY Non Reactive; RAPID PLASMA REAGIN Non Reactive
[2023-03-11] MEDS: ENOXAPARIN SOD INJ 40 MG/0.4 ML SYR SC SCH (15:59)
[2023-03-11] MEDS: MONTELUKAST SODIUM 10 MG TAB PO SCH (21:33)
[2023-03-11] MEDS: MIRTAZAPINE 15 MG TAB PO SCH (21:33)
[2023-03-11] MEDS: ATORVASTATIN 40 MG TAB PO SCH (21:34)
[2023-03-11] MEDS: ALPRAZOLAM 0.5 MG TAB PO PRN (21:37)
[2023-03-12] VITALS (9 sets, daily range): BP systolic 98–135; BP diastolic 46–72; PULSE 78–93; RESP 16–20; TEMP 97.5–98.3; O2SAT 97–100
[2023-03-12] MEDS: SODIUM CHLORIDE 0.9% 1000ML 1,000 ML IV SCH (03:50)
[2023-03-12 06:30] LABS: BASOPHILS # (AUTO) 0.1 (0.0-0.1); BASOPHILS % 0.6 % (0.0-1.0); EOSINOPHILS # (AUTO) 0.5 (0.0-0.4); EOSINOPHILS % 4.1 % (0.0-6.0); HEMATOCRIT 29.9 % (34.2-44.1); HEMOGLOBIN 9.9 g/dL (12.0-16.0); LYMPHOCYTES # (AUTO) 2.2 (1.0-3.2); MEAN CORPUSCULAR HEMOGLOBIN 30.6 pg (28-32); MEAN CORPUSCULAR HGB CONC 33.1 g/dL (31-35); MEAN CORPUSCULAR VOLUME 92.3 fL (81-99); MONOCYTES # (AUTO) 0.9 (0.2-0.8); NEUTROPHILS # (AUTO) 7.7 (2.1-6.9); NEUTROPHILS % 67.9 % (38.7-80.0); PLATELET COUNT 185 x10e3/uL (140-360); RED BLOOD COUNT 3.24 x10e6/uL (3.6-5.1); RED CELL DISTRIBUTION WIDTH 13.1 % (11.7-14.4); WHITE BLOOD COUNT 11.34 x10e3/uL (4.8-10.8)
[2023-03-12 06:55] LABS: ANION GAP 12.9 mmol/L (8-16); BLOOD UREA NITROGEN < 5 mg/dL (7-26); CALCIUM 7.6 mg/dL (8.4-10.2); CARBON DIOXIDE 23 mmol/L (22-29); CHLORIDE 116 mmol/L (98-107); CREATININE, SERUM 0.68 mg/dL (0.57-1.11); EST GLOMERULAR FILTRATION RATE 87 ML/MIN (>=60); GLUCOSE 96 mg/dL (74-118); SODIUM 149 mmol/L (136-145)
[2023-03-12 07:15] LABS: BUN/CREATININE RATIO 7 (6-25)
[2023-03-12 07:16] LABS: POTASSIUM 2.9 mmol/L (3.5-5.1)
[2023-03-12] MEDS ORDERED: POTASSIUM CHLORIDE 20 MEQ TAB CR PO STA (08:07)
[2023-03-12 09:08] LABS: FERRITIN 386.93 ng/mL (4.63-204.00)
[2023-03-12] MEDS: PANTOPRAZOLE SOD 40 MG TABEC PO SCH (09:20)
[2023-03-12] MEDS: SERTRALINE HCL 50 MG TAB PO SCH (09:20)
[2023-03-12] MEDS: LOSARTAN POTASSIUM 25 MG TAB PO SCH (09:20)
[2023-03-12] MEDS: DULOXETINE HCL 30 MG DELAYED RELEASE PO SCH (09:20)
[2023-03-12] MEDS: GABAPENTIN 100 MG CAP PO SCH ×3 (09:26→21:00)
[2023-03-12] MEDS: BALSAM PERU/CASTOR OIL 60 GM OINT...G. TP SCH (09:26)
[2023-03-12 09:34] LABS: FOLATE 9.7 ng/mL (7.0-15.4)
[2023-03-12] MEDS ORDERED: POTASSIUM CHLORIDE 20 MEQ TAB CR PO ONE (12:15)
[2023-03-12] MEDS: SODIUM CHLORIDE 0.45% 1,000 ML IV SCH ×2 (15:23→21:01)
[2023-03-12] MEDS: ENOXAPARIN SOD INJ 40 MG/0.4 ML SYR SC SCH (17:18)
[2023-03-12] MEDS: MIRTAZAPINE 15 MG TAB PO SCH (21:00)
[2023-03-12] MEDS: MONTELUKAST SODIUM 10 MG TAB PO SCH (21:00)
[2023-03-12] MEDS: ATORVASTATIN 40 MG TAB PO SCH (21:00)
[2023-03-13 03:27] VITALS: BP 120/61; PULSE 75; RESP 16; TEMP 97.5; O2SAT 98
[2023-03-13] MEDS: SODIUM CHLORIDE 0.45% 1,000 ML IV SCH ×2 (05:28→16:49)
[2023-03-13 07:55] LABS: BASOPHILS # (AUTO) 0.1 (0.0-0.1); BASOPHILS % 0.5 % (0.0-1.0); EOSINOPHILS # (AUTO) 0.4 (0.0-0.4); EOSINOPHILS % 3.8 % (0.0-6.0); HEMATOCRIT 28.8 % (34.2-44.1); HEMOGLOBIN 9.5 g/dL (12.0-16.0); LYMPHOCYTES # (AUTO) 2.8 (1.0-3.2); LYMPHOCYTES % 24.3 % (18.0-39.1); MEAN CORPUSCULAR HEMOGLOBIN 30.7 pg (28-32); MEAN CORPUSCULAR VOLUME 93.2 fL (81-99); MONOCYTES # (AUTO) 0.9 (0.2-0.8); NEUTROPHILS # (AUTO) 7.3 (2.1-6.9); PLATELET COUNT 171 x10e3/uL (140-360); RED BLOOD COUNT 3.09 x10e6/uL (3.6-5.1); RED CELL DISTRIBUTION WIDTH 13.4 % (11.7-14.4)
[2023-03-13 08:00] VITALS: BP 120/61; PULSE 75; RESP 16; TEMP 97.5; O2SAT 98
[2023-03-13 08:09] LABS: BLOOD UREA NITROGEN < 5 mg/dL (7-26); CARBON DIOXIDE 24 mmol/L (22-29); CHLORIDE 113 mmol/L (98-107); CREATININE, SERUM 0.71 mg/dL (0.57-1.11); EST GLOMERULAR FILTRATION RATE 85 ML/MIN (>=60); GLUCOSE 86 mg/dL (74-118); SODIUM 145 mmol/L (136-145)
[2023-03-13 08:12] LABS: BUN/CREATININE RATIO 7 (6-25); CALCIUM 6.9 mg/dL (8.4-10.2)
[2023-03-13] MEDS: DULOXETINE HCL 30 MG DELAYED RELEASE PO SCH (08:28)
[2023-03-13] MEDS: GABAPENTIN 100 MG CAP PO SCH ×3 (08:28→20:33)
[2023-03-13] MEDS: SERTRALINE HCL 50 MG TAB PO SCH (08:29)
[2023-03-13] MEDS: PANTOPRAZOLE SOD 40 MG TABEC PO SCH (08:29)
[2023-03-13] MEDS: LOSARTAN POTASSIUM 25 MG TAB PO SCH (08:29)
[2023-03-13 08:33] VITALS: BP 131/64; PULSE 72; RESP 18; TEMP 99.3; O2SAT 99
[2023-03-13] MEDS: BALSAM PERU/CASTOR OIL 60 GM OINT...G. TP SCH (09:17)
[2023-03-13 12:13] VITALS: BP 133/84; PULSE 80; RESP 18; TEMP 98.6; O2SAT 100
[2023-03-13] MEDS: ALPRAZOLAM 0.5 MG TAB PO PRN ×2 (12:44→20:33)
[2023-03-13 16:14] VITALS: BP 121/65; PULSE 79; RESP 20; TEMP 98.2; O2SAT 99
[2023-03-13] MEDS: ENOXAPARIN SOD INJ 40 MG/0.4 ML SYR SC SCH (16:50)
[2023-03-13] MEDS ORDERED: POTASSIUM CHLORIDE 20 MEQ TAB CR PO STA (17:50)
[2023-03-13] MEDS ORDERED: CALCIUM GLUC 1 G/50 ML NACL 50 ML IV ONE ×2 (18:00→18:35)
[2023-03-13] MEDS ORDERED: MAGNESIUM SULFATE 2GM/50ML 50 ML IV ONE (18:00)
[2023-03-13 20:00] VITALS: BP 129/72; PULSE 81; RESP 18; TEMP 98.1; O2SAT 99
[2023-03-13] MEDS: ATORVASTATIN 40 MG TAB PO SCH (20:33)
[2023-03-13] MEDS: MONTELUKAST SODIUM 10 MG TAB PO SCH (20:33)
[2023-03-13] MEDS: MIRTAZAPINE 15 MG TAB PO SCH (20:33)
[2023-03-14] VITALS (8 sets, daily range): BP systolic 118–135; BP diastolic 58–77; PULSE 71–89; RESP 16–18; TEMP 97.8–98.3; O2SAT 93–100
[2023-03-14] MEDS: SODIUM CHLORIDE 0.45% 1,000 ML IV SCH (01:26)
[2023-03-14] MEDS: SERTRALINE HCL 50 MG TAB PO SCH (09:16)
[2023-03-14] MEDS: DULOXETINE HCL 30 MG DELAYED RELEASE PO SCH (09:16)
[2023-03-14] MEDS: PANTOPRAZOLE SOD 40 MG TABEC PO SCH (09:16)
[2023-03-14] MEDS: GABAPENTIN 100 MG CAP PO SCH ×3 (09:16→21:00)
[2023-03-14] MEDS: LOSARTAN POTASSIUM 25 MG TAB PO SCH (09:16)
[2023-03-14] MEDS: BALSAM PERU/CASTOR OIL 60 GM OINT...G. TP SCH (09:20)
[2023-03-14] MEDS ORDERED: POTASSIUM CHLORIDE 10MEQ EA PO ONE (11:00)
[2023-03-14] MEDS: MAGNESIUM OXIDE 400 MG TAB PO SCH ×2 (11:29→17:07)
[2023-03-14] MEDS: METOCLOPRAMIDE HCL 10 MG TAB PO SCH ×3 (11:29→21:00)
[2023-03-14] MEDS: IRON SUCROSE 100 MG in SODIUM CHLORIDE 0.9% 100 ML IV SCH (11:29)
[2023-03-14] MEDS: ENOXAPARIN SOD INJ 40 MG/0.4 ML SYR SC SCH (17:07)
[2023-03-14] MEDS: MONTELUKAST SODIUM 10 MG TAB PO SCH (21:00)
[2023-03-14] MEDS: ATORVASTATIN 40 MG TAB PO SCH (21:00)
[2023-03-14] MEDS ORDERED: MIRTAZAPINE 15 MG TAB PO SCH (21:00)
[2023-03-15 00:38] VITALS: BP 113/59; PULSE 77; RESP 18; TEMP 97.5; O2SAT 98
[2023-03-15 04:00] VITALS: BP 135/78; PULSE 78; RESP 17; TEMP 97.7; O2SAT 99
[2023-03-15 06:26] LABS: ANION GAP 12.1 mmol/L (8-16); CALCIUM 8.1 mg/dL (8.4-10.2); CREATININE, SERUM 0.68 mg/dL (0.57-1.11); POTASSIUM 4.1 mmol/L (3.5-5.1)
[2023-03-15 06:44] LABS: MAGNESIUM 1.5 MG/DL (1.3-2.1)
[2023-03-15 07:40] VITALS: BP 137/77; PULSE 83; RESP 17; TEMP 98.1; O2SAT 100
[2023-03-15 08:15] VITALS: BP 137/77; PULSE 83; RESP 17; TEMP 98.1; O2SAT 100
[2023-03-15] MEDS: LOSARTAN POTASSIUM 25 MG TAB PO SCH (09:19)
[2023-03-15] MEDS: DULOXETINE HCL 30 MG DELAYED RELEASE PO SCH (09:19)
[2023-03-15] MEDS: SERTRALINE HCL 50 MG TAB PO SCH (09:20)
[2023-03-15] MEDS: GABAPENTIN 100 MG CAP PO SCH (09:20)
[2023-03-15] MEDS: MAGNESIUM OXIDE 400 MG TAB PO SCH (09:20)
[2023-03-15] MEDS: METOCLOPRAMIDE HCL 10 MG TAB PO SCH ×2 (09:20→11:19)
[2023-03-15] MEDS: BALSAM PERU/CASTOR OIL 60 GM OINT...G. TP SCH (09:20)
[2023-03-15] MEDS: PANTOPRAZOLE SOD 40 MG TABEC PO SCH (09:20)
[2023-03-15] MEDS: IRON SUCROSE 100 MG in SODIUM CHLORIDE 0.9% 100 ML IV SCH (10:55)
[2023-03-15 11:35] VITALS: BP 131/70; PULSE 83; RESP 20; TEMP 97.8; O2SAT 99
== END 2023-03-15 14:06 | disposition home or self-care (01) | DRG 641 ==
LOC: ER 15:18 → ERHOLD 16:11 → MED/SURG2 18:13 → OBSVTOIN 03-10 13:53
PROVIDERS: ADMIT Internal Medicine; ATTEND Internal Medicine
DX: R62.7 Adult failure to thrive (principal); Z68.1 Body mass index [BMI] 19.9 or less, adult; E44.0 Moderate protein-calorie malnutrition; R64 Cachexia; E87.0 Hyperosmolality and hypernatremia; N17.9 Acute kidney failure, unspecified; R13.10 Dysphagia, unspecified; D50.9 Iron deficiency anemia, unspecified; I25.10 Atherosclerotic heart disease of native coronary artery without angina pectoris; F41.9 Anxiety disorder, unspecified; F32.A Depression, unspecified; E78.5 Hyperlipidemia, unspecified; E03.9 Hypothyroidism, unspecified; I10 Essential (primary) hypertension; M19.90 Unspecified osteoarthritis, unspecified site; G47.00 Insomnia, unspecified; L89.152 Pressure ulcer of sacral region, stage 2; R63.0 Anorexia; I25.2 Old myocardial infarction; Z20.822 Contact with and (suspected) exposure to COVID-19; Z79.890 Hormone replacement therapy; Z95.5 Presence of coronary angioplasty implant and graft; E86.0 Dehydration; E87.6 Hypokalemia; E61.2 Magnesium deficiency
CPT/HCPCS: 36415; 71260; 74177; 74181; 74230; 80048; 80053; 81001; 82550; 82607; 82728; 82746; 83540; 83690; 83735; 84100; 84134; 84439; 84443; 84466; 84484; 85025; 85045; 86140; 86592; 87390; 93005; 93306; 94799; 99252; 99284; G0378; G0433; G0435; J0694; J1650; J1756; J3475; J7030; J7050; Q9967; U0002

== ENCOUNTER → 2023-05-27 | Outpatient (REF) | payer MEDICARE ==
[~2023-05-27] MED LIST changes: +ASPIRIN81 MG PO; +ATORVASTATIN CA80 MG PO; +DULOXETINE HCL30 MG PO; +GABAPENTIN100 MG PO; +LEVOTHYROXINE125 MCG PO; +LOSARTAN POTASS25 MG PO; +MIRTAZAPINE15 MG PO; +TRIAMTERENE-HCTZ1 EA PO; +ULTRAM 50MG50 MG PO
== END ==
LOC: DX 10:09
PROVIDERS: ATTEND Internal Medicine
DX: R13.12 Dysphagia, oropharyngeal phase (principal); I10 Essential (primary) hypertension; I25.10 Atherosclerotic heart disease of native coronary artery without angina pectoris; E78.5 Hyperlipidemia, unspecified; E03.9 Hypothyroidism, unspecified; Z86.73 Personal history of transient ischemic attack (TIA), and cerebral infarction without residual deficits
CPT/HCPCS: 74230

== ENCOUNTER → 2023-06-15 | Day surgery (SDC) | payer MEDICARE ==
[~2023-06-15] MED LIST changes: +B12 IV; +BRILINTA60 MG PO; +CELEBREX200 MG PO; +HYOSCYAMINE SULFATE 0.5 MG/ML INJ ONE; +LIDOCAINE HCL 2% LOCAL INJ 5 ML SDV VIAL INJ ONE; +LINZESS72 MCG PO; +METOPROLOL SUCC25 MG PO; +OMEPRAZOLE40 MG PO; +PROPOFOL IV EMULSION 10 MG/ML 20 ML VIAL ONE; +REGLAN5 MG PO; +REMERON30 MG PO
[2023-06-15] MEDS: LACTATED RINGER'S 1,000 ML ONE (06:55)
[2023-06-15 09:57] VITALS: BP 138/74; PULSE 85; RESP 18; O2SAT 97
== END | disposition home or self-care (01) ==
LOC: OR 06:05
PROVIDERS: ATTEND Internal Medicine Gastroenterology
DX: K59.00 Constipation, unspecified (principal); K63.5 Polyp of colon; K62.5 Hemorrhage of anus and rectum; K62.89 Other specified diseases of anus and rectum; K57.30 Diverticulosis of large intestine without perforation or abscess without bleeding; K64.8 Other hemorrhoids; E73.9 Lactose intolerance, unspecified; K21.9 Gastro-esophageal reflux disease without esophagitis; I10 Essential (primary) hypertension; I25.10 Atherosclerotic heart disease of native coronary artery without angina pectoris; I25.2 Old myocardial infarction; E78.5 Hyperlipidemia, unspecified; E03.9 Hypothyroidism, unspecified; G89.29 Other chronic pain; M06.9 Rheumatoid arthritis, unspecified; F41.9 Anxiety disorder, unspecified; F32.A Depression, unspecified; Z88.0 Allergy status to penicillin; Z88.8 Allergy status to other drugs, medicaments and biological substances; Z79.82 Long term (current) use of aspirin; Z79.899 Other long term (current) drug therapy; Z83.79 Family history of other diseases of the digestive system
CPT/HCPCS: 45380; J1980; J2001; J2704; J7121; 45378